=== PATIENT | female | born 1950 | race Two or more races ===

== ENCOUNTER 2018-01-31 19:30 | Emergency (ER) | payer SELFPAY ==
[~2018-01-31] VITALS: Ht 152.4 cm; Wt 145.1 kg
[2018-01-31 19:35] VITALS: BP 170/87
[2018-01-31] MEDS ORDERED: IBUPROFEN 400 MG TABLET ONE ×2 (19:49→20:42)
[2018-01-31] MEDS ORDERED: IBUPROFEN 400 MG TABLET PO ONE (20:00)
== END 2018-01-31 20:49 | disposition home or self-care (01) ==
LOC: ER 19:32
DX: S80.02XA Contusion of left knee, initial encounter (principal); S80.01XA Contusion of right knee, initial encounter; W01.0XXA Fall on same level from slipping, tripping and stumbling without subsequent striking against object, initial encounter; Y93.89 Activity, other specified; Y92.89 Other specified places as the place of occurrence of the external cause; Y99.8 Other external cause status
CPT/HCPCS: 73562 ×2; 99284; A4606; Z7610